=== PATIENT | male | born 1995 | race African-American/Black ===

== ENCOUNTER 2022-05-23 07:55 | Emergency (ER) | payer OTHER ==
[2022-05-23 08:33] LABS: BASOPHIL 0.5 % (0-2); EOSINOPHIL 1.4 % (0-5); HCT 46.6 % (42.0-52.0); HGB 15.7 g/dl (13.2-18.0); MCH 30.5 pg (25.0-31.0); MCHC 33.7 g/dL (32.0-36.0); MCV 90.5 fL (78.0-100.0); MONOCYTE 8.2 % (0-12); MPV 9.6 fL (6.0-9.5); NEUTROPHIL 69.5 % (41-80); NRBC 0; PLT 235 K/uL (150-400); RBC 5.15 M/uL (4.70-6.00); RDW 13.1 % (11.5-14.0); WBC 8.3 K/uL (4.0-10.5)
[2022-05-23 09:06] LABS: ACETAMINOPHEN (TYLENOL) <2.0 ug/mL (10.0-30.0); ALBUMIN 3.8 g/dL (3.4-5.0); ALKALINE PHOSHATASE 62 U/L (46-116); ALT 21 U/L (16-63); AST 25 U/L (15-37); BILIRUBIN - TOTAL 0.5 mg/dL (0.2-1.0); BUN 8 mg/dL (7-18); BUN/CREAT RATIO (CALC) 7.7 RATIO; CHLORIDE 102 mmol/L (98-107); CO2 (BICARBONATE) 25 mmol/L (21-32); CREATININE 1.04 mg/dL (0.67-1.17); GLOBULIN (CALCULATION) 3.3 g/dL; GLUCOSE 193 mg/dL (74-106); POTASSIUM 3.3 mmol/L (3.5-5.1); TOTAL PROTEIN 7.1 g/dL (6.4-8.2)
[2022-05-23 10:32] LABS: BILIRUBIN NEGATIVE (NEGATIVE); BLOOD NEGATIVE Ery/uL (NEGATIVE); CLARITY CLEAR (CLEAR); COLOR YELLOW (YELLOW); GLUCOSE (U) TRACE mg/dL (NORMAL); LEUKOCYTES NEGATIVE Leu/uL (NEGATIVE); NITRITE NEGATIVE (NEGATIVE); PROTEIN 2+ mg/dL (NEGATIVE); SPECIFIC GRAVITY >=1.030 (1.001-1.030); UROBILINOGEN 0.2 mg/dL (0.2-1.0)
[2022-05-23 10:38] LABS: AMPHETAMINES NEGATIVE (NEGATIVE); ECSTASY (MDMA) NEGATIVE (NEGATIVE); MARIJUANA (THC) POSITIVE (NEGATIVE); METHADONE NEGATIVE (NEGATIVE); OPIATES POSITIVE (NEGATIVE); OXYCODONE POSITIVE (NEGATIVE)
[2022-05-23 10:39] LABS: BARBITURATES NEGATIVE (NEGATIVE)
[2022-05-23 11:04] LABS: BACTERIA TRACE; URINARY RBC RARE
[2022-05-23 11:05] LABS: MUCOUS TRACE
== END 2022-05-23 12:15 ==
LOC: FER 07:55
PROVIDERS: Emergency Medicine
DX: T40.2X2A Poisoning by other opioids, intentional self-harm, initial encounter (principal); F19.10 Other psychoactive substance abuse, uncomplicated; F10.10 Alcohol abuse, uncomplicated; Z28.310 Unvaccinated for COVID-19
CPT/HCPCS: 36415; 80053; 80305; 81001; 85025; G0480; J2405; J7030